=== PATIENT | male | born 1990 | race African-American/Black ===

== ENCOUNTER 2019-02-16 22:31 | Emergency (ER) | payer MEDICAID, OTHER ==
[~2019-02-16] VITALS: Ht 180.3 cm; Wt 113.4 kg
[~2019-02-16 22:31] MED LIST: AMOXICILLIN500 MG ORAL
[2019-02-16 22:43] VITALS: BP 118/73
--- NOTE | 2019-02-16 22:45 | NUR ---
ED Nurse Note: Patient reports cutting finger about an hour ago on the sink while fixing it.
--- NOTE | 2019-02-16 23:05 | NUR ---
ED Nurse Note: pt walked in c/o lac on right index finger, pt reports he cut himself while fixing the sink. noted small lac with small amount of blood and redness and tenderness. Report given to PATRICIO Villalpando.
--- NOTE | 2019-02-16 23:14 | NUR ---
ED Nurse Note: Patient tolerated Tdap Injection well.
[2019-02-16] MEDS ORDERED: Tetanus/Diptheria/Pertussis IM ONE (23:15)
--- NOTE | 2019-02-16 23:26 | NUR ---
ED Nurse Note: ERMd tending to wound.
[2019-02-16] MEDS ORDERED: CEPHALEXIN500 MG ORAL (23:41)
--- NOTE | 2019-02-16 23:41 | Emergency Room Report ---
History of Present Illness General Chief Complaint: Laceration Source: Patient Present Illness HPI This is a 29-year-old male who is right-hand dominant. He presents with chief complaint of laceration to the left index finger. He was cleaning his sink today and there was broken glasses. he sustained a laceration. mild pain. bleeding stopped. Tetanus about 10 yrs ago. Allergies: Coded Allergies: No Known Allergies (Unverified , 11/11/15) Patient History Past Medical History: see triage record, old chart reviewed Past Surgical History: none Pertinent Family History: none Social History: Denies: smoking Immunizations: other Reviewed Nursing Documentation: PMH: Agreed; PSxH: Agreed Nursing Documentation-PMH Past Medical History: No Stated History Review of Systems Eye: Denies: eye pain, blurred vision ENT: Denies: ear pain, nose congestion, throat swelling Respiratory: Denies: cough, shortness of breath Cardiovascular: Denies: chest pain, palpitations Gastrointestinal: Denies: abdominal pain, diarrhea, nausea, vomiting Musculoskeletal: Denies: back pain, joint pain Skin: Denies: rash Neurological: Denies: headache, numbness Endocrine: Denies: increased thirst, increased urine Hematologic/Lymphatic: Denies: easy bruising All Other Systems: negative except mentioned in HPI Physical Exam Vital Signs Date Time Temp Pulse Resp B/P (MAP) Pulse Ox O2 Delivery O2 Flow Rate FiO2 02/16/19 22:43 97.9 77 1 118/73 (88) 96 Room Air vitals normal Sp02 EP Interpretation: reviewed, normal General Appearance: well appearing, no apparent distress, alert Head: normocephalic, atraumatic Eyes: bilateral eye PERRL, bilateral eye EOMI ENT: hearing grossly normal, normal pharynx Neck: full range of motion, supple, no meningismus Respiratory: chest non-tender, lungs clear, normal breath sounds Cardiovascular #1: regular rate, rhythm, no murmur Gastrointestinal: normal bowel sounds, non tender, no mass, no organomegaly, no bruit, non-distended Musculoskeletal: back normal, gait/station normal, normal range of motion, other - left index finger: 2cm lac over DIP joint on volar aspect. FROM. no tendon involvement. no FB. Neurologic: alert, oriented x3 Psychiatric: mood/affect normal Skin: warm/dry Procedures Laceration/Wound Repair Laceration/Wound Repair : Consent: Verbal Wound Location: upper extremity Wound's Depth, Shape: linear Wound Length (cm): 2 Wound Explored: clean Irrigated w/ Saline (ccs): 1000 Betadine Prep?: No Anesthesia: 1% Lidocaine Volume Anesthetic (ccs): 3 Wound Repaired With: sutures Suture Size/Type: 5:0, proline Number of Sutures: 5 Patient Tolerated: Well Complications: None Medical Decision Making Diagnostic Impression: Primary Impression: Finger laceration Qualified Codes: S61.211A - Laceration without foreign body of left index finger without damage to nail, initial encounter ER Course pt with finger lac. no fb or tendon involvement. Last Vital Signs Date Time Temp Pulse Resp B/P (MAP) Pulse Ox O2 Delivery O2 Flow Rate FiO2 02/16/19 22:43 97.9 89 1 118/73 96 Room Air Status: improved Disposition: HOME, SELF-CARE Condition: Stable Scripts Cephalexin* (KEFLEX*) 500 Mg Capsule 500 MG ORAL TID, #21 CAP Prov: Nnamdi Emerson MD 02/16/19 Patient Instructions: Laceration Care, Adult Additional Instructions: Keep wound clean. sutures out in 7-10 days. Return if worse. Nnamdi Emerson MD Feb 16, 2019 23:41
--- NOTE | 2019-02-16 23:57 | NUR ---
ED Nurse Note: pt cleared to be d/c per ERMD, pt discharge and aftercare instruction provided w/ prescription, pt education done via discussion and handout, advised to return to ed if changes in condition, pt verbalized understanding and agrees with plan, vss, ambulatory w/ steady gait, dressing and splint applied by earth science technical officer, pt accompanied by spouse member. left w/ all belongings, id band removed.
[2019-02-16 23:58] VITALS: BP 110/76
== END 2019-02-16 23:58 | disposition home or self-care (01) ==
LOC: EMR 22:58
DX: S61.211A Laceration without foreign body of left index finger without damage to nail, initial encounter (principal); Z23 Encounter for immunization; W25.XXXA Contact with sharp glass, initial encounter; Y93.9 Activity, unspecified; Y92.9 Unspecified place or not applicable
CPT/HCPCS: 12002; 90471; 90715; 99283; Z7502